=== PATIENT | female | born 1970 | race Caucasian/White ===

== ENCOUNTER 2021-02-06 10:02 | Emergency (ER) | payer BC ==
[~2021-02-06] VITALS: Ht 170.2 cm; Wt 72.6 kg
--- NOTE | 2021-02-06 10:20 | NUR ---
THE PATIENT BIB FOR C/O UQ ABDOMINAL PAIN SUDDEN ONSET AT 0800. THE PATIENT RATES PAIN 10/10. ABDOMEN SOFT AND NON-DISTENDED. DENIES NAUSEA/VOMITING AT THIS TIME. WILL CONTINUE TO MONITOR THE PATIENT.
[2021-02-06] MEDS ORDERED: IV NS 0.9% 1,000 ML BAG IV ONE (10:30)
[2021-02-06] MEDS ORDERED: KETOROLAC TROMETHAMINE INJ 30 MG/ML VIAL IV ONE (10:30)
[2021-02-06] MEDS ORDERED: KETOROLAC TROMETHAMINE 15 MG/ML VIAL ONE (10:38)
--- NOTE | 2021-02-06 10:43 | NUR ---
THE PATIENT SIGNED THE WAIVER CLAIMING THAT THERE IS NO POSSOBLITY OF BEING .
--- NOTE | 2021-02-06 10:45 | NUR ---
STARTED IV ON RIGHT HAND G 20, BLOOD SPECIMEN COLLECTED AND SENT TO THE LAB. THE LINE IS SALINE LOCKED.
[2021-02-06 10:47] LABS: BASOPHILS # (AUTO) 0.1 K/uL (0.0-0.2); EOSINOPHILS % (AUTO) 0.2 % (0.0-6.0); HEMATOCRIT 41 % (33-45); HEMOGLOBIN 13.9 g/dL (11.5-14.8); LYMPHOCYTES # (AUTO) 1.4 K/uL (0.8-4.8); LYMPHOCYTES % (AUTO) 10.9 % (20.0-44.0); MEAN CORPUSCULAR HGB CONC 34 g/dl (31.0-36.0); MEAN CORPUSCULAR VOLUME 92 fL (82-100); MONOCYTES # (AUTO) 1.2 K/uL (0.1-1.30); NEUTROPHILS # (AUTO) 10.1 K/uL (1.8-8.9); NEUTROPHILS % (AUTO) 78.9 % (43.0-81.0); PLATELET COUNT (AUTO) 208 K/uL (150-450); RED BLOOD CELL COUNT(AUTO) 4.49 MIL/uL (4.0-5.2); WHITE BLOOD COUNT (AUTO) 12.8 K/uL (4.3-11.0)
[2021-02-06 10:50] LABS: CREATININE 0.7 mg/dL (0.6-1.3)
[2021-02-06 10:52] LABS: BILIRUBIN,URINE NEGATIVE (NEGATIVE); COLOR,URINE YELLOW (YELLOW); LEUKOCYTE ESTERASE ,URINE NEGATIVE (NEGATIVE); NITRITE, URINE NEGATIVE (NEGATIVE); PROTEIN,URINE NEGATIVE (NEGATIVE); UGLUCOSE NEGATIVE (NEGATIVE); UROBILINOGEN,URINE 0.2 EU/dL (0.2)
[2021-02-06 10:56] LABS: ALBUMIN 3.7 g/dL (3.4-5.0); BILIRUBIN,DIRECT 0.1 mg/dL (0.0-0.2); BILIRUBIN,TOTAL 0.3 mg/dL (0.2-1.0); TOTAL PROTEIN, SERUM 7.5 g/dL (6.4-8.2)
[2021-02-06] MEDS ORDERED: IOHEXOL-300 100 ML VIAL IV ONE (11:07)
--- NOTE | 2021-02-06 11:08 | NUR ---
THE PATIENT IS TAKEN TO CT
--- NOTE | 2021-02-06 11:23 | NUR ---
THE PATIENT IS BACK FROM CT
[2021-02-06 11:35] LABS: BACTERIA,URINE Rare /HPF (None Seen); RBC,URINE 0-2 /HPF (0-2); SQUAMOUS EPITHELIAL CELL,UR Rare /HPF (None Seen); WBC,URINE 0-2 /HPF (0-3)
[2021-02-06] MEDS ORDERED: IBUP-1957 PO (12:22)
[2021-02-06] MEDS ORDERED: OXYC-128 PO (12:22)
--- NOTE | 2021-02-06 12:31 | NUR ---
IV removed. Catheter intact and site benign. Pressure and 4x4 applied to site. No bleeding noted.Patient discharged to home in stable condition. Written and verbal after care instructions given. Patient verbalizes understanding of instruction.
[2021-02-06 12:32] VITALS: BP 135/86
== END 2021-02-06 12:34 | disposition home or self-care (01) ==
LOC: ER 10:11
DX: R10.12 Left upper quadrant pain (principal); K76.89 Other specified diseases of liver; R16.0 Hepatomegaly, not elsewhere classified; I10 Essential (primary) hypertension; Z88.2 Allergy status to sulfonamides; Z79.899 Other long term (current) drug therapy
CPT/HCPCS: 36415; 74177; 80048; 80076; 81001; 83690; 84703; 85025; 96361; 96374; 99285; J1885; J7030; Q9967